=== PATIENT | male | born 1955 | race Hispanic/Latino ===

== ENCOUNTER → 2018-03-12 | Outpatient (RCR) | payer OTHER ==
[~2018-03-12] MED LIST: ALFUZOSIN HCL10 MG PO; ALPRAZOLAM0.25 MG PO; AZATHIOPRINE50 MG PO; CALAN SR240 MG PO; CIPRO500 MG PO; GABAPENTIN300 MG PO; LIPITOR20 MG PO; NEXIUM20 MG; NORCO 10-325 T1 EACH PO; PLAQUENIL200 MG PO; PRAVASTATIN SOD40 MG; PREDNISONE5 MG PO; TAMSULOSIN HCL0.4 MG PO; TRAMADOL-ACETAMI1 EA PO; TYLENOL325 MG PO; [UNRECOGNIZED DRUG - OTHER] PO
== END ==
LOC: PT 02-18 11:04
PROVIDERS: ATTEND Specialist
DX: S46.812D Strain of other muscles, fascia and tendons at shoulder and upper arm level, left arm, subsequent encounter (principal); R29.3 Abnormal posture; M62.81 Muscle weakness (generalized)

== ENCOUNTER 2018-03-17 16:49 | Outpatient (RCR) | payer OTHER | END 2018-04-11 | LOC: PT 16:49 | PROVIDERS: ATTEND Specialist | DX: S46.812D Strain of other muscles, fascia and tendons at shoulder and upper arm level, left arm, subsequent encounter (principal); M62.81 Muscle weakness (generalized); R29.3 Abnormal posture ==

== ENCOUNTER 2020-12-19 13:54 | Emergency (ER) | payer OTHER ==
[~2020-12-19] VITALS: Ht 175.3 cm; Wt 83.9 kg
[2020-12-19] MEDS: CASIRIVIMAB/IMDEVIMAB 10 ML in SODIUM CHLORIDE 0.9% 100 ML IV ONE (14:39)
[2020-12-19 15:52] VITALS: BP 144/76
== END 2020-12-19 16:13 | disposition home or self-care (01) ==
LOC: ER 14:19
DX: U07.1 COVID-19 (principal); R05 Cough; I10 Essential (primary) hypertension; E78.5 Hyperlipidemia, unspecified; F32.9 Major depressive disorder, single episode, unspecified; F41.9 Anxiety disorder, unspecified; I25.10 Atherosclerotic heart disease of native coronary artery without angina pectoris; M32.9 Systemic lupus erythematosus, unspecified; Z79.899 Other long term (current) drug therapy
CPT/HCPCS: 93005; 99283; J7050

== ENCOUNTER 2020-12-21 15:12 | Inpatient (IN) | payer OTHER ==
[~2020-12-21] VITALS: Ht 175.3 cm; Wt 90.7 kg
[2020-12-21] MEDS ORDERED: DEXAMETHASONE SOD PHOS INJ 4 MG/ML VIAL IV ONE (16:00)
[2020-12-21] MEDS ORDERED: KETOROLAC TROMETHAMINE 30 MG/ML VIAL IV STA (16:28)
[2020-12-21] MEDS ORDERED: DEXAMETHASONE SOD PHOS INJ 4 MG/ML VIAL ONE (16:30)
[2020-12-21] MEDS ORDERED: KETOROLAC TROMETHAMINE 30 MG/ML VIAL ONE (16:30)
[2020-12-21] MEDS ORDERED: SODIUM CHLORIDE 0.9% 250ML 250 ML ONE (16:31)
[2020-12-21] MEDS ORDERED: PLAVIX75 MG PO (17:10)
[2020-12-21] MEDS ORDERED: LOSARTAN POTAS100 MG PO (17:10)
[2020-12-21 17:33] LABS: CREATINE KINASE MB 0.4 ng/mL (0-5.0)
[2020-12-21 19:28] VITALS: BP 129/70
[2020-12-21 20:10] VITALS: BP 129/70
[2020-12-21 21:51] VITALS: BP 129/70
[2020-12-22] VITALS (8 sets, daily range): BP systolic 106–141; BP diastolic 64–91
[2020-12-22] MEDS ORDERED: MAGNESIUM HYDROXIDE 30 ML UDC PO PRN (03:00)
[2020-12-22] MEDS ORDERED: ONDANSETRON HCL INJ 2MG/ML 2ML 2 MG/ML VIAL IV PRN (03:00)
[2020-12-22 07:17] LABS: BASOPHILS % 0.3 % (0.0-1.0); HEMATOCRIT 30.9 % (38.2-49.6); HEMOGLOBIN 11.1 g/dL (14.0-18.0); LYMPHOCYTES # (AUTO) 0.3 (1.0-3.2); LYMPHOCYTES % 5.5 % (18.0-39.1); MEAN CORPUSCULAR HEMOGLOBIN 35.2 pg (28-32); MEAN CORPUSCULAR HGB CONC 35.9 g/dL (31-35); MEAN CORPUSCULAR VOLUME 98.1 fL (81-99); MONOCYTES # (AUTO) 0.1 (0.2-0.8); MONOCYTES % 2.2 % (4.4-11.3); NEUTROPHILS # (AUTO) 4.9 (2.1-6.9); NEUTROPHILS % 84.4 % (38.7-80.0); PLATELET COUNT 159 x10e3/uL (140-360); RED BLOOD COUNT 3.15 x10e6/uL (4.3-5.7); RED CELL DISTRIBUTION WIDTH 13.4 % (11.7-14.4)
[2020-12-22 07:26] LABS: ALBUMIN/GLOBULIN RATIO 0.3 (0.8-2.0); ANION GAP 16.5 mmol/L (8-16); CALCIUM 8.7 mg/dL (8.4-10.2); CREATININE, SERUM 0.75 mg/dL (0.72-1.25); POTASSIUM 4.5 mmol/L (3.5-5.1)
[2020-12-22 08:01] LABS: CREATINE KINASE MB 0.8 ng/mL (0-5.0)
[2020-12-22] MEDS: VERAPAMIL HCL 240 MG TABSR PO SCH (08:52)
[2020-12-22] MEDS: DEXAMETHASONE SOD PHOS INJ 4 MG/ML VIAL IV SCH (08:52)
[2020-12-22] MEDS: PANTOPRAZOLE SOD 40 MG TABEC PO SCH ×2 (08:52→16:20)
[2020-12-22] MEDS: GABAPENTIN 300 MG CAP PO SCH ×2 (08:52→16:20)
[2020-12-22] MEDS: LOSARTAN POTASSIUM 100 MG TAB PO SCH (08:52)
[2020-12-22] MEDS: ENOXAPARIN SOD INJ 60 MG/0.6 ML SYR SC SCH ×2 (10:35→21:15)
[2020-12-22] MEDS: FUROSEMIDE 20 MG TAB PO SCH (11:30)
[2020-12-22] MEDS: ALFUZOSIN HCL 10 MG TAB.ER.24H PO SCH (11:30)
[2020-12-22] MEDS ORDERED: SODIUM CHLORIDE 0.9% 250ML 250 ML ONE ×2 (14:37→14:39)
[2020-12-22] MEDS: CEFTRIAXONE 1 GM in SODIUM CHLORIDE 0.9% 50ML 50 ML IV SCH (14:43)
[2020-12-22 15:46] LABS: CREATINE KINASE MB 0.8 ng/mL (0-5.0)
[2020-12-22] MEDS ORDERED: SODIUM CHLORIDE 0.9% 50ML 50 ML ONE (15:52)
[2020-12-22] MEDS ORDERED: ENOXAPARIN SOD INJ 40 MG/0.4 ML SYR SC SCH (17:00)
[2020-12-22] MEDS ORDERED: REMDESIVIR 200MG 200 MG IV ONE (17:00)
[2020-12-22] MEDS: CLOPIDOGREL BISULFATE 75 MG TAB PO SCH (21:00)
[2020-12-22] MEDS: PRAVASTATIN 20 MG TAB PO SCH (21:15)
[2020-12-22] MEDS: TRAMADOL HCL 50 MG TAB PO PRN (21:50)
[2020-12-23] VITALS (7 sets, daily range): BP systolic 100–143; BP diastolic 52–77
[2020-12-23 04:49] LABS: BASOPHILS % 0.2 % (0.0-1.0); HEMATOCRIT 29.2 % (38.2-49.6); HEMOGLOBIN 10.4 g/dL (14.0-18.0); LYMPHOCYTES # (AUTO) 0.4 (1.0-3.2); LYMPHOCYTES % 4.3 % (18.0-39.1); MEAN CORPUSCULAR HEMOGLOBIN 35.1 pg (28-32); MEAN CORPUSCULAR HGB CONC 35.6 g/dL (31-35); MEAN CORPUSCULAR VOLUME 98.6 fL (81-99); MONOCYTES # (AUTO) 0.2 (0.2-0.8); MONOCYTES % 1.6 % (4.4-11.3); NEUTROPHILS # (AUTO) 8.2 (2.1-6.9); NEUTROPHILS % 89.7 % (38.7-80.0); PLATELET COUNT 172 x10e3/uL (140-360); RED BLOOD COUNT 2.96 x10e6/uL (4.3-5.7); RED CELL DISTRIBUTION WIDTH 13.3 % (11.7-14.4)
[2020-12-23 05:12] LABS: ALBUMIN 1.8 g/dL (3.5-5.0); ALBUMIN/GLOBULIN RATIO 0.3 (0.8-2.0); ANION GAP 16.6 mmol/L (8-16); CALCIUM 8.5 mg/dL (8.4-10.2); CREATININE, SERUM 0.8 mg/dL (0.72-1.25); POTASSIUM 4.6 mmol/L (3.5-5.1)
[2020-12-23] MEDS: DEXAMETHASONE SOD PHOS INJ 4 MG/ML VIAL IV SCH (09:12)
[2020-12-23] MEDS: GABAPENTIN 300 MG CAP PO SCH ×2 (09:13→17:04)
[2020-12-23] MEDS: FUROSEMIDE 20 MG TAB PO SCH (09:13)
[2020-12-23] MEDS: ALFUZOSIN HCL 10 MG TAB.ER.24H PO SCH (09:13)
[2020-12-23] MEDS: PANTOPRAZOLE SOD 40 MG TABEC PO SCH ×2 (09:13→17:04)
[2020-12-23] MEDS: ENOXAPARIN SOD INJ 60 MG/0.6 ML SYR SC SCH ×2 (09:13→21:05)
[2020-12-23] MEDS: VERAPAMIL HCL 240 MG TABSR PO SCH (09:13)
[2020-12-23] MEDS: LOSARTAN POTASSIUM 100 MG TAB PO SCH (09:13)
[2020-12-23] MEDS ORDERED: FUROSEMIDE INJ 10 MG/ML 4 ML VIAL IV ONE (10:45)
[2020-12-23] MEDS: CEFTRIAXONE 1 GM in SODIUM CHLORIDE 0.9% 50ML 50 ML IV SCH (14:20)
[2020-12-23] MEDS: REMDESIVIR 100MG 100 MG IV SCH (17:04)
[2020-12-23] MEDS: PRAVASTATIN 20 MG TAB PO SCH (21:05)
[2020-12-23] MEDS: CLOPIDOGREL BISULFATE 75 MG TAB PO SCH (21:05)
[2020-12-24] VITALS (8 sets, daily range): BP systolic 108–128; BP diastolic 59–79
[2020-12-24] MEDS: TRAMADOL HCL 50 MG TAB PO PRN (00:20)
[2020-12-24 06:43] LABS: ALBUMIN/GLOBULIN RATIO 0.3 (0.8-2.0); ANION GAP 18.2 mmol/L (8-16); CALCIUM 8.6 mg/dL (8.4-10.2); CREATININE, SERUM 0.88 mg/dL (0.72-1.25); POTASSIUM 5.2 mmol/L (3.5-5.1)
[2020-12-24] MEDS: DEXAMETHASONE SOD PHOS INJ 4 MG/ML VIAL IV SCH (09:06)
[2020-12-24] MEDS: VERAPAMIL HCL 240 MG TABSR PO SCH (09:07)
[2020-12-24] MEDS: ALFUZOSIN HCL 10 MG TAB.ER.24H PO SCH (09:07)
[2020-12-24] MEDS: FUROSEMIDE 20 MG TAB PO SCH (09:08)
[2020-12-24] MEDS: ENOXAPARIN SOD INJ 60 MG/0.6 ML SYR SC SCH ×2 (09:08→20:46)
[2020-12-24] MEDS: PANTOPRAZOLE SOD 40 MG TABEC PO SCH ×2 (09:08→17:13)
[2020-12-24] MEDS: GABAPENTIN 300 MG CAP PO SCH ×2 (09:08→17:13)
[2020-12-24] MEDS: LOSARTAN POTASSIUM 100 MG TAB PO SCH (09:08)
[2020-12-24] MEDS ORDERED: SODIUM CHLORIDE 0.9% 1000ML 1,000 ML IV ONE (11:00)
[2020-12-24] MEDS ORDERED: SODIUM CHLORIDE 0.9% 1000ML 1,000 ML ONE (14:35)
[2020-12-24] MEDS: CEFTRIAXONE 1 GM in SODIUM CHLORIDE 0.9% 50ML 50 ML IV SCH (15:02)
[2020-12-24] MEDS: REMDESIVIR 100MG 100 MG IV SCH (17:13)
[2020-12-24] MEDS: PRAVASTATIN 20 MG TAB PO SCH (20:46)
[2020-12-24] MEDS: CLOPIDOGREL BISULFATE 75 MG TAB PO SCH (20:46)
[2020-12-25] VITALS (8 sets, daily range): BP systolic 113–130; BP diastolic 65–82
[2020-12-25] MEDS: TRAMADOL HCL 50 MG TAB PO PRN (00:40)
[2020-12-25 05:53] LABS: BASOPHILS % 0.1 % (0.0-1.0); HEMATOCRIT 31.6 % (38.2-49.6); HEMOGLOBIN 10.9 g/dL (14.0-18.0); LYMPHOCYTES # (AUTO) 0.3 (1.0-3.2); LYMPHOCYTES % 3.9 % (18.0-39.1); MEAN CORPUSCULAR HEMOGLOBIN 34.5 pg (28-32); MEAN CORPUSCULAR HGB CONC 34.5 g/dL (31-35); MONOCYTES # (AUTO) 0.1 (0.2-0.8); MONOCYTES % 1.5 % (4.4-11.3); NEUTROPHILS # (AUTO) 7.5 (2.1-6.9); NEUTROPHILS % 92.3 % (38.7-80.0); PLATELET COUNT 232 x10e3/uL (140-360); RED BLOOD COUNT 3.16 x10e6/uL (4.3-5.7); RED CELL DISTRIBUTION WIDTH 13.3 % (11.7-14.4)
[2020-12-25 06:31] LABS: ALBUMIN 2.2 g/dL (3.5-5.0); ALBUMIN/GLOBULIN RATIO 0.3 (0.8-2.0); ANION GAP 16.3 mmol/L (8-16); CALCIUM 8.9 mg/dL (8.4-10.2); CREATININE, SERUM 0.76 mg/dL (0.72-1.25); POTASSIUM 5.3 mmol/L (3.5-5.1)
[2020-12-25] MEDS ORDERED: SOD POLYSTYRENE SULFONATE SUSP 15 GM/60 ML BTL PO ONE (08:45)
[2020-12-25] MEDS: DEXAMETHASONE SOD PHOS INJ 4 MG/ML VIAL IV SCH (09:16)
[2020-12-25] MEDS: PANTOPRAZOLE SOD 40 MG TABEC PO SCH ×2 (09:18→16:08)
[2020-12-25] MEDS: LOSARTAN POTASSIUM 100 MG TAB PO SCH (09:18)
[2020-12-25] MEDS: ALFUZOSIN HCL 10 MG TAB.ER.24H PO SCH (09:18)
[2020-12-25] MEDS: VERAPAMIL HCL 240 MG TABSR PO SCH (09:18)
[2020-12-25] MEDS: GABAPENTIN 300 MG CAP PO SCH ×2 (09:18→16:08)
[2020-12-25] MEDS: ENOXAPARIN SOD INJ 60 MG/0.6 ML SYR SC SCH ×2 (09:18→21:30)
[2020-12-25] MEDS: CEFTRIAXONE 1 GM in SODIUM CHLORIDE 0.9% 50ML 50 ML IV SCH (15:00)
[2020-12-25] MEDS: REMDESIVIR 100MG 100 MG IV SCH (16:08)
[2020-12-25] MEDS: CLOPIDOGREL BISULFATE 75 MG TAB PO SCH (21:30)
[2020-12-25] MEDS: PRAVASTATIN 20 MG TAB PO SCH (21:30)
[2020-12-26] VITALS (7 sets, daily range): BP systolic 95–152; BP diastolic 61–78
[2020-12-26 04:49] LABS: BASOPHILS % 0.3 % (0.0-1.0); HEMATOCRIT 29.5 % (38.2-49.6); HEMOGLOBIN 10.3 g/dL (14.0-18.0); LYMPHOCYTES # (AUTO) 0.3 (1.0-3.2); LYMPHOCYTES % 3.6 % (18.0-39.1); MEAN CORPUSCULAR HEMOGLOBIN 34.8 pg (28-32); MEAN CORPUSCULAR HGB CONC 34.9 g/dL (31-35); MEAN CORPUSCULAR VOLUME 99.7 fL (81-99); MONOCYTES # (AUTO) 0.1 (0.2-0.8); MONOCYTES % 1.2 % (4.4-11.3); NEUTROPHILS # (AUTO) 6.6 (2.1-6.9); PLATELET COUNT 227 x10e3/uL (140-360); RED BLOOD COUNT 2.96 x10e6/uL (4.3-5.7); RED CELL DISTRIBUTION WIDTH 13.4 % (11.7-14.4)
[2020-12-26 05:09] LABS: ALBUMIN 1.8 g/dL (3.5-5.0); ALBUMIN/GLOBULIN RATIO 0.3 (0.8-2.0); CALCIUM 8.4 mg/dL (8.4-10.2); CREATININE, SERUM 0.74 mg/dL (0.72-1.25)
[2020-12-26] MEDS: ENOXAPARIN SOD INJ 60 MG/0.6 ML SYR SC SCH ×2 (09:05→21:30)
[2020-12-26] MEDS: GABAPENTIN 300 MG CAP PO SCH ×2 (09:05→17:15)
[2020-12-26] MEDS: LOSARTAN POTASSIUM 100 MG TAB PO SCH (09:05)
[2020-12-26] MEDS: PANTOPRAZOLE SOD 40 MG TABEC PO SCH ×2 (09:05→17:15)
[2020-12-26] MEDS: DEXAMETHASONE SOD PHOS INJ 4 MG/ML VIAL IV SCH (09:05)
[2020-12-26] MEDS: VERAPAMIL HCL 240 MG TABSR PO SCH (09:05)
[2020-12-26] MEDS: ALFUZOSIN HCL 10 MG TAB.ER.24H PO SCH (09:05)
[2020-12-26] MEDS ORDERED: FUROSEMIDE INJ 10 MG/ML 4 ML VIAL IV ONE (10:15)
[2020-12-26] MEDS: CEFTRIAXONE 1 GM in SODIUM CHLORIDE 0.9% 50ML 50 ML IV SCH (14:41)
[2020-12-26] MEDS: REMDESIVIR 100MG 100 MG IV SCH (17:15)
[2020-12-26] MEDS: PRAVASTATIN 20 MG TAB PO SCH (21:30)
[2020-12-26] MEDS: CLOPIDOGREL BISULFATE 75 MG TAB PO SCH (21:30)
[2020-12-27] VITALS (7 sets, daily range): BP systolic 96–135; BP diastolic 53–79
[2020-12-27] MEDS ORDERED: PREDNISONE 20 MG TAB PO ONE (01:45)
[2020-12-27] MEDS: ALFUZOSIN HCL 10 MG TAB.ER.24H PO SCH (09:27)
[2020-12-27] MEDS: DEXAMETHASONE SOD PHOS INJ 4 MG/ML VIAL IV SCH (09:27)
[2020-12-27] MEDS: LOSARTAN POTASSIUM 100 MG TAB PO SCH (09:28)
[2020-12-27] MEDS: VERAPAMIL HCL 240 MG TABSR PO SCH (09:28)
[2020-12-27] MEDS: GABAPENTIN 300 MG CAP PO SCH ×2 (09:29→17:07)
[2020-12-27] MEDS: ENOXAPARIN SOD INJ 60 MG/0.6 ML SYR SC SCH ×2 (09:29→20:25)
[2020-12-27] MEDS: PANTOPRAZOLE SOD 40 MG TABEC PO SCH ×2 (09:29→17:07)
[2020-12-27] MEDS ORDERED: FUROSEMIDE INJ 10 MG/ML 4 ML VIAL IV ONE (10:55)
[2020-12-27] MEDS: CEFTRIAXONE 1 GM in SODIUM CHLORIDE 0.9% 50ML 50 ML IV SCH (17:07)
[2020-12-27] MEDS: PRAVASTATIN 20 MG TAB PO SCH (20:25)
[2020-12-27] MEDS: CLOPIDOGREL BISULFATE 75 MG TAB PO SCH (20:25)
[2020-12-28] VITALS (7 sets, daily range): BP systolic 110–131; BP diastolic 60–85
[2020-12-28 06:28] LABS: ALBUMIN 1.9 g/dL (3.5-5.0); ALBUMIN/GLOBULIN RATIO 0.3 (0.8-2.0); ANION GAP 16.1 mmol/L (8-16); CALCIUM 8.4 mg/dL (8.4-10.2); CREATININE, SERUM 0.8 mg/dL (0.72-1.25); POTASSIUM 4.1 mmol/L (3.5-5.1)
[2020-12-28] MEDS: PANTOPRAZOLE SOD 40 MG TABEC PO SCH ×2 (09:00→17:00)
[2020-12-28] MEDS: ALFUZOSIN HCL 10 MG TAB.ER.24H PO SCH (09:00)
[2020-12-28] MEDS: ENOXAPARIN SOD INJ 60 MG/0.6 ML SYR SC SCH ×2 (09:00→21:52)
[2020-12-28] MEDS: GABAPENTIN 300 MG CAP PO SCH ×2 (09:00→17:00)
[2020-12-28] MEDS: DEXAMETHASONE SOD PHOS INJ 4 MG/ML VIAL IV SCH (09:00)
[2020-12-28] MEDS: LOSARTAN POTASSIUM 100 MG TAB PO SCH (09:00)
[2020-12-28] MEDS: VERAPAMIL HCL 240 MG TABSR PO SCH (09:00)
[2020-12-28] MEDS: CEFTRIAXONE 1 GM in SODIUM CHLORIDE 0.9% 50ML 50 ML IV SCH (15:08)
[2020-12-28] MEDS: CLOPIDOGREL BISULFATE 75 MG TAB PO SCH (21:52)
[2020-12-28] MEDS: PRAVASTATIN 20 MG TAB PO SCH (21:52)
[2020-12-29] VITALS (7 sets, daily range): BP systolic 97–136; BP diastolic 60–87
[2020-12-29 04:47] LABS: BASOPHILS % 0.2 % (0.0-1.0); HEMATOCRIT 29.7 % (38.2-49.6); HEMOGLOBIN 10.2 g/dL (14.0-18.0); LYMPHOCYTES # (AUTO) 0.3 (1.0-3.2); MEAN CORPUSCULAR HEMOGLOBIN 34.2 pg (28-32); MEAN CORPUSCULAR HGB CONC 34.3 g/dL (31-35); MEAN CORPUSCULAR VOLUME 99.7 fL (81-99); MONOCYTES # (AUTO) 0.1 (0.2-0.8); MONOCYTES % 1.9 % (4.4-11.3); NEUTROPHILS # (AUTO) 4.5 (2.1-6.9); NEUTROPHILS % 87.4 % (38.7-80.0); PLATELET COUNT 222 x10e3/uL (140-360); RED BLOOD COUNT 2.98 x10e6/uL (4.3-5.7); RED CELL DISTRIBUTION WIDTH 13.2 % (11.7-14.4)
[2020-12-29 05:30] LABS: ALBUMIN 1.8 g/dL (3.5-5.0); ALBUMIN/GLOBULIN RATIO 0.3 (0.8-2.0); ANION GAP 14.3 mmol/L (8-16); CALCIUM 8.4 mg/dL (8.4-10.2); CREATININE, SERUM 0.68 mg/dL (0.72-1.25); POTASSIUM 4.3 mmol/L (3.5-5.1)
[2020-12-29] MEDS: ALFUZOSIN HCL 10 MG TAB.ER.24H PO SCH (09:38)
[2020-12-29] MEDS: DEXAMETHASONE SOD PHOS INJ 4 MG/ML VIAL IV SCH (09:38)
[2020-12-29] MEDS: LOSARTAN POTASSIUM 100 MG TAB PO SCH (09:39)
[2020-12-29] MEDS: GABAPENTIN 300 MG CAP PO SCH ×2 (09:39→17:40)
[2020-12-29] MEDS: ENOXAPARIN SOD INJ 60 MG/0.6 ML SYR SC SCH ×2 (09:39→21:07)
[2020-12-29] MEDS: VERAPAMIL HCL 240 MG TABSR PO SCH (09:39)
[2020-12-29] MEDS: PANTOPRAZOLE SOD 40 MG TABEC PO SCH ×2 (09:39→17:40)
[2020-12-29] MEDS ORDERED: FUROSEMIDE INJ 10 MG/ML 4 ML VIAL IV ONE (10:45)
[2020-12-29] MEDS: FAMOTIDINE 20 MG TAB PO SCH ×2 (11:36→21:06)
[2020-12-29] MEDS: CLOPIDOGREL BISULFATE 75 MG TAB PO SCH (21:06)
[2020-12-29] MEDS: PRAVASTATIN 20 MG TAB PO SCH (21:07)
[2020-12-30] VITALS (9 sets, daily range): BP systolic 109–123; BP diastolic 60–91
[2020-12-30] MEDS: ALFUZOSIN HCL 10 MG TAB.ER.24H PO SCH (09:59)
[2020-12-30] MEDS: FAMOTIDINE 20 MG TAB PO SCH ×2 (09:59→21:32)
[2020-12-30] MEDS: ENOXAPARIN SOD INJ 60 MG/0.6 ML SYR SC SCH ×2 (09:59→21:32)
[2020-12-30] MEDS: PANTOPRAZOLE SOD 40 MG TABEC PO SCH ×2 (09:59→17:15)
[2020-12-30] MEDS: DEXAMETHASONE SOD PHOS INJ 4 MG/ML VIAL IV SCH (09:59)
[2020-12-30] MEDS: GABAPENTIN 300 MG CAP PO SCH ×2 (09:59→17:15)
[2020-12-30] MEDS: LOSARTAN POTASSIUM 100 MG TAB PO SCH (11:00)
[2020-12-30] MEDS: VERAPAMIL HCL 240 MG TABSR PO SCH (11:00)
[2020-12-30] MEDS: CLOPIDOGREL BISULFATE 75 MG TAB PO SCH (21:32)
[2020-12-30] MEDS: PRAVASTATIN 20 MG TAB PO SCH (21:32)
[2020-12-31] VITALS (8 sets, daily range): BP systolic 106–117; BP diastolic 67–85
[2020-12-31] MEDS: ALFUZOSIN HCL 10 MG TAB.ER.24H PO SCH (11:11)
[2020-12-31] MEDS: DEXAMETHASONE SOD PHOS INJ 4 MG/ML VIAL IV SCH (11:11)
[2020-12-31] MEDS: GABAPENTIN 300 MG CAP PO SCH ×2 (11:12→16:59)
[2020-12-31] MEDS: VERAPAMIL HCL 240 MG TABSR PO SCH (11:12)
[2020-12-31] MEDS: FAMOTIDINE 20 MG TAB PO SCH ×2 (11:12→20:30)
[2020-12-31] MEDS: PANTOPRAZOLE SOD 40 MG TABEC PO SCH ×2 (11:12→16:59)
[2020-12-31] MEDS: LOSARTAN POTASSIUM 100 MG TAB PO SCH (11:12)
[2020-12-31] MEDS: ENOXAPARIN SOD INJ 60 MG/0.6 ML SYR SC SCH ×2 (11:13→20:30)
[2020-12-31] MEDS: PRAVASTATIN 20 MG TAB PO SCH (20:30)
[2020-12-31] MEDS: CLOPIDOGREL BISULFATE 75 MG TAB PO SCH (20:30)
[2021-01-01] VITALS (8 sets, daily range): BP systolic 91–128; BP diastolic 53–77
[2021-01-01 05:29] LABS: BASOPHILS % 0.2 % (0.0-1.0); HEMOGLOBIN 11.6 g/dL (14.0-18.0); LYMPHOCYTES # (AUTO) 0.6 (1.0-3.2); LYMPHOCYTES % 9.4 % (18.0-39.1); MEAN CORPUSCULAR HEMOGLOBIN 34.3 pg (28-32); MEAN CORPUSCULAR HGB CONC 35.2 g/dL (31-35); MEAN CORPUSCULAR VOLUME 97.6 fL (81-99); MONOCYTES # (AUTO) 0.2 (0.2-0.8); MONOCYTES % 2.3 % (4.4-11.3); NEUTROPHILS # (AUTO) 5.4 (2.1-6.9); NEUTROPHILS % 82.7 % (38.7-80.0); PLATELET COUNT 274 x10e3/uL (140-360); RED BLOOD COUNT 3.38 x10e6/uL (4.3-5.7)
[2021-01-01 06:06] LABS: ALBUMIN/GLOBULIN RATIO 0.3 (0.8-2.0); ANION GAP 18.3 mmol/L (8-16); CALCIUM 8.8 mg/dL (8.4-10.2); CREATININE, SERUM 0.75 mg/dL (0.72-1.25); POTASSIUM 4.3 mmol/L (3.5-5.1)
[2021-01-01] MEDS: ENOXAPARIN SOD INJ 60 MG/0.6 ML SYR SC SCH ×2 (11:51→21:10)
[2021-01-01] MEDS: DEXAMETHASONE SOD PHOS INJ 4 MG/ML VIAL IV SCH (11:51)
[2021-01-01] MEDS: VERAPAMIL HCL 240 MG TABSR PO SCH (11:52)
[2021-01-01] MEDS: ALFUZOSIN HCL 10 MG TAB.ER.24H PO SCH (11:52)
[2021-01-01] MEDS: FAMOTIDINE 20 MG TAB PO SCH ×2 (11:52→21:10)
[2021-01-01] MEDS: PANTOPRAZOLE SOD 40 MG TABEC PO SCH ×2 (11:52→17:22)
[2021-01-01] MEDS: LOSARTAN POTASSIUM 100 MG TAB PO SCH (11:52)
[2021-01-01] MEDS: PRAVASTATIN 20 MG TAB PO SCH (21:10)
[2021-01-01] MEDS: CLOPIDOGREL BISULFATE 75 MG TAB PO SCH (21:10)
[2021-01-02] VITALS (9 sets, daily range): BP systolic 109–127; BP diastolic 60–74
[2021-01-02] MEDS: DEXAMETHASONE SOD PHOS INJ 4 MG/ML VIAL IV SCH (10:01)
[2021-01-02] MEDS: ALFUZOSIN HCL 10 MG TAB.ER.24H PO SCH (10:01)
[2021-01-02] MEDS: LOSARTAN POTASSIUM 100 MG TAB PO SCH (10:02)
[2021-01-02] MEDS: VERAPAMIL HCL 240 MG TABSR PO SCH (10:02)
[2021-01-02] MEDS: PANTOPRAZOLE SOD 40 MG TABEC PO SCH ×2 (10:03→17:47)
[2021-01-02] MEDS: ENOXAPARIN SOD INJ 60 MG/0.6 ML SYR SC SCH ×2 (10:03→21:38)
[2021-01-02] MEDS: FAMOTIDINE 20 MG TAB PO SCH ×2 (10:03→21:38)
[2021-01-02] MEDS: ACETAMINOPHEN 325 MG TAB PO PRN (18:30)
[2021-01-02] MEDS: CLOPIDOGREL BISULFATE 75 MG TAB PO SCH (21:38)
[2021-01-02] MEDS: PRAVASTATIN 20 MG TAB PO SCH (21:38)
[2021-01-03] VITALS (9 sets, daily range): BP systolic 94–130; BP diastolic 52–78
[2021-01-03] MEDS: DEXAMETHASONE SOD PHOS INJ 4 MG/ML VIAL IV SCH (09:36)
[2021-01-03] MEDS: ALFUZOSIN HCL 10 MG TAB.ER.24H PO SCH (09:37)
[2021-01-03] MEDS: VERAPAMIL HCL 240 MG TABSR PO SCH (09:38)
[2021-01-03] MEDS: LOSARTAN POTASSIUM 100 MG TAB PO SCH (09:38)
[2021-01-03] MEDS: ENOXAPARIN SOD INJ 60 MG/0.6 ML SYR SC SCH (09:41)
[2021-01-03] MEDS: FAMOTIDINE 20 MG TAB PO SCH ×2 (09:41→21:04)
[2021-01-03] MEDS: PANTOPRAZOLE SOD 40 MG TABEC PO SCH ×2 (09:41→16:07)
[2021-01-03] MEDS: CLOPIDOGREL BISULFATE 75 MG TAB PO SCH (21:04)
[2021-01-03] MEDS: PRAVASTATIN 20 MG TAB PO SCH (21:04)
[2021-01-04 04:19] VITALS: BP 117/71
[2021-01-04 08:17] VITALS: BP 113/67
[2021-01-04 08:27] VITALS: BP 113/67
[2021-01-04] MEDS: ALFUZOSIN HCL 10 MG TAB.ER.24H PO SCH (09:25)
[2021-01-04] MEDS: LOSARTAN POTASSIUM 100 MG TAB PO SCH (09:26)
[2021-01-04] MEDS: VERAPAMIL HCL 120 MG TABSR PO SCH (09:26)
[2021-01-04] MEDS: PANTOPRAZOLE SOD 40 MG TABEC PO SCH ×2 (09:27→17:23)
[2021-01-04] MEDS: HYDROXYCHLOROQUINE SULFATE 200 MG TAB PO SCH (09:27)
[2021-01-04] MEDS: FAMOTIDINE 20 MG TAB PO SCH ×2 (09:27→20:00)
[2021-01-04] MEDS: DEXAMETHASONE SOD PHOS INJ 4 MG/ML VIAL IV SCH (09:27)
[2021-01-04 11:37] VITALS: BP 98/62
[2021-01-04] MEDS: ENOXAPARIN SOD INJ 40 MG/0.4 ML SYR SC SCH (14:13)
[2021-01-04] MEDS: ACETAMINOPHEN 325 MG TAB PO PRN (17:33)
[2021-01-04 20:00] VITALS: BP 106/62
[2021-01-04] MEDS: CLOPIDOGREL BISULFATE 75 MG TAB PO SCH (20:00)
[2021-01-04] MEDS: PRAVASTATIN 20 MG TAB PO SCH (20:00)
[2021-01-04 21:36] VITALS: BP 106/62
[2021-01-05] VITALS (7 sets, daily range): BP systolic 91–104; BP diastolic 54–65
[2021-01-05 05:46] LABS: BASOPHILS % 0.2 % (0.0-1.0); EOSINOPHILS % 0.8 % (0.0-6.0); HEMATOCRIT 31.1 % (38.2-49.6); HEMOGLOBIN 10.9 g/dL (14.0-18.0); LYMPHOCYTES # (AUTO) 0.7 (1.0-3.2); LYMPHOCYTES % 14.9 % (18.0-39.1); MEAN CORPUSCULAR HEMOGLOBIN 34.2 pg (28-32); MEAN CORPUSCULAR VOLUME 97.5 fL (81-99); MONOCYTES # (AUTO) 0.2 (0.2-0.8); MONOCYTES % 4.6 % (4.4-11.3); NEUTROPHILS # (AUTO) 3.5 (2.1-6.9); NEUTROPHILS % 72.9 % (38.7-80.0); PLATELET COUNT 147 x10e3/uL (140-360); RED BLOOD COUNT 3.19 x10e6/uL (4.3-5.7); RED CELL DISTRIBUTION WIDTH 13.2 % (11.7-14.4)
[2021-01-05 06:30] LABS: ALBUMIN 2.5 g/dL (3.5-5.0); ALBUMIN/GLOBULIN RATIO 0.5 (0.8-2.0); ANION GAP 13.2 mmol/L (8-16); CALCIUM 8.4 mg/dL (8.4-10.2); CREATININE, SERUM 0.82 mg/dL (0.72-1.25); POTASSIUM 4.2 mmol/L (3.5-5.1)
[2021-01-05] MEDS: ALFUZOSIN HCL 10 MG TAB.ER.24H PO SCH (09:40)
[2021-01-05] MEDS: DEXAMETHASONE SOD PHOS INJ 4 MG/ML VIAL IV SCH (09:40)
[2021-01-05] MEDS: ENOXAPARIN SOD INJ 40 MG/0.4 ML SYR SC SCH (09:41)
[2021-01-05] MEDS: HYDROXYCHLOROQUINE SULFATE 200 MG TAB PO SCH (09:41)
[2021-01-05] MEDS: PANTOPRAZOLE SOD 40 MG TABEC PO SCH ×2 (09:41→18:04)
[2021-01-05] MEDS: VERAPAMIL HCL 120 MG TABSR PO SCH (09:41)
[2021-01-05] MEDS: LOSARTAN POTASSIUM 100 MG TAB PO SCH (09:41)
[2021-01-05] MEDS: FAMOTIDINE 20 MG TAB PO SCH ×2 (09:41→20:25)
[2021-01-05] MEDS ORDERED: FUROSEMIDE INJ 10 MG/ML 4 ML VIAL IV ONE (11:30)
[2021-01-05] MEDS: ACETAMINOPHEN 325 MG TAB PO PRN (15:16)
[2021-01-05] MEDS: CLOPIDOGREL BISULFATE 75 MG TAB PO SCH (20:25)
[2021-01-05] MEDS: PRAVASTATIN 20 MG TAB PO SCH (20:25)
[2021-01-06] VITALS (8 sets, daily range): BP systolic 91–113; BP diastolic 59–71
[2021-01-06] MEDS: ALFUZOSIN HCL 10 MG TAB.ER.24H PO SCH (09:31)
[2021-01-06] MEDS: HYDROXYCHLOROQUINE SULFATE 200 MG TAB PO SCH (09:32)
[2021-01-06] MEDS: LOSARTAN POTASSIUM 100 MG TAB PO SCH (09:32)
[2021-01-06] MEDS: PANTOPRAZOLE SOD 40 MG TABEC PO SCH ×2 (09:32→16:22)
[2021-01-06] MEDS: FAMOTIDINE 20 MG TAB PO SCH ×2 (09:32→21:24)
[2021-01-06] MEDS: ENOXAPARIN SOD INJ 40 MG/0.4 ML SYR SC SCH (09:32)
[2021-01-06] MEDS: VERAPAMIL HCL 120 MG TABSR PO SCH (09:32)
[2021-01-06] MEDS: CLOPIDOGREL BISULFATE 75 MG TAB PO SCH (21:24)
[2021-01-06] MEDS: PRAVASTATIN 20 MG TAB PO SCH (21:24)
[2021-01-06] MEDS: ACETAMINOPHEN 325 MG TAB PO PRN (21:25)
[2021-01-06] MEDS ORDERED: BENZONATATE 100 MG CAP PO PRN (21:45)
[2021-01-07] VITALS (8 sets, daily range): BP systolic 90–132; BP diastolic 62–71
[2021-01-07] MEDS: ALFUZOSIN HCL 10 MG TAB.ER.24H PO SCH (09:46)
[2021-01-07] MEDS: VERAPAMIL HCL 120 MG TABSR PO SCH (09:46)
[2021-01-07] MEDS: PANTOPRAZOLE SOD 40 MG TABEC PO SCH ×2 (09:47→16:37)
[2021-01-07] MEDS: LOSARTAN POTASSIUM 100 MG TAB PO SCH (09:47)
[2021-01-07] MEDS: FAMOTIDINE 20 MG TAB PO SCH ×2 (09:47→21:55)
[2021-01-07] MEDS: HYDROXYCHLOROQUINE SULFATE 200 MG TAB PO SCH (09:47)
[2021-01-07] MEDS: ENOXAPARIN SOD INJ 40 MG/0.4 ML SYR SC SCH (09:47)
[2021-01-07] MEDS: PRAVASTATIN 20 MG TAB PO SCH (21:55)
[2021-01-07] MEDS: CLOPIDOGREL BISULFATE 75 MG TAB PO SCH (21:55)
[2021-01-08] VITALS (7 sets, daily range): BP systolic 99–116; BP diastolic 68–79
[2021-01-08] MEDS: FAMOTIDINE 20 MG TAB PO SCH ×2 (10:20→21:58)
[2021-01-08] MEDS: LOSARTAN POTASSIUM 100 MG TAB PO SCH (10:20)
[2021-01-08] MEDS: ENOXAPARIN SOD INJ 40 MG/0.4 ML SYR SC SCH (10:20)
[2021-01-08] MEDS: ALFUZOSIN HCL 10 MG TAB.ER.24H PO SCH (10:20)
[2021-01-08] MEDS: PANTOPRAZOLE SOD 40 MG TABEC PO SCH ×2 (10:20→16:27)
[2021-01-08] MEDS: VERAPAMIL HCL 120 MG TABSR PO SCH (10:20)
[2021-01-08] MEDS: HYDROXYCHLOROQUINE SULFATE 200 MG TAB PO SCH (10:20)
[2021-01-08] MEDS: PRAVASTATIN 20 MG TAB PO SCH (21:58)
[2021-01-08] MEDS: CLOPIDOGREL BISULFATE 75 MG TAB PO SCH (21:58)
[2021-01-09] VITALS (9 sets, daily range): BP systolic 103–179; BP diastolic 67–80
[2021-01-09 09:20] LABS: BASOPHILS % 0.2 % (0.0-1.0); EOSINOPHILS % 0.5 % (0.0-6.0); HEMOGLOBIN 10.2 g/dL (14.0-18.0); LYMPHOCYTES # (AUTO) 0.6 (1.0-3.2); LYMPHOCYTES % 13.1 % (18.0-39.1); MEAN CORPUSCULAR HEMOGLOBIN 34.1 pg (28-32); MEAN CORPUSCULAR HGB CONC 35.2 g/dL (31-35); MONOCYTES # (AUTO) 0.2 (0.2-0.8); MONOCYTES % 4.1 % (4.4-11.3); NEUTROPHILS # (AUTO) 3.2 (2.1-6.9); NEUTROPHILS % 76.1 % (38.7-80.0); PLATELET COUNT 117 x10e3/uL (140-360); RED BLOOD COUNT 2.99 x10e6/uL (4.3-5.7); RED CELL DISTRIBUTION WIDTH 13.2 % (11.7-14.4)
[2021-01-09] MEDS: HYDROXYCHLOROQUINE SULFATE 200 MG TAB PO SCH (09:32)
[2021-01-09] MEDS: VERAPAMIL HCL 120 MG TABSR PO SCH (09:32)
[2021-01-09] MEDS: PANTOPRAZOLE SOD 40 MG TABEC PO SCH ×2 (09:32→18:09)
[2021-01-09] MEDS: ALFUZOSIN HCL 10 MG TAB.ER.24H PO SCH (09:32)
[2021-01-09] MEDS: ENOXAPARIN SOD INJ 40 MG/0.4 ML SYR SC SCH (09:32)
[2021-01-09] MEDS: LOSARTAN POTASSIUM 100 MG TAB PO SCH (09:32)
[2021-01-09] MEDS: FAMOTIDINE 20 MG TAB PO SCH ×2 (09:32→20:35)
[2021-01-09 09:51] LABS: ALBUMIN 2.6 g/dL (3.5-5.0); ALBUMIN/GLOBULIN RATIO 0.5 (0.8-2.0); ANION GAP 12.4 mmol/L (8-16); CALCIUM 8.4 mg/dL (8.4-10.2); CREATININE, SERUM 0.72 mg/dL (0.72-1.25); POTASSIUM 4.4 mmol/L (3.5-5.1)
[2021-01-09] MEDS: CLOPIDOGREL BISULFATE 75 MG TAB PO SCH (20:35)
[2021-01-09] MEDS: PRAVASTATIN 20 MG TAB PO SCH (20:35)
[2021-01-10] VITALS (8 sets, daily range): BP systolic 102–157; BP diastolic 72–95
[2021-01-10] MEDS: ENOXAPARIN SOD INJ 40 MG/0.4 ML SYR SC SCH (11:28)
[2021-01-10] MEDS: HYDROXYCHLOROQUINE SULFATE 200 MG TAB PO SCH (11:28)
[2021-01-10] MEDS: PANTOPRAZOLE SOD 40 MG TABEC PO SCH (11:28)
[2021-01-10] MEDS: ALFUZOSIN HCL 10 MG TAB.ER.24H PO SCH (11:28)
[2021-01-10] MEDS: FAMOTIDINE 20 MG TAB PO SCH (11:28)
[2021-01-10] MEDS: VERAPAMIL HCL 120 MG TABSR PO SCH (11:29)
[2021-01-10] MEDS: LOSARTAN POTASSIUM 100 MG TAB PO SCH (11:29)
[2021-01-10] MEDS ORDERED: ONDANSETRON HCL 4 MG ORAL DISINTEGRATING TAB PO PRN (14:00)
== END 2021-01-10 17:12 | DRG 177 ==
LOC: FSED 15:31 → ERHOLD 16:04 → IMCU 19:30
PROVIDERS: ADMIT Internal Medicine; ATTEND Internal Medicine
PROC: 8E0ZXY6 Isolation (ICD-10-PCS; principal; 2020-12-21)
PROC: XW043E5 Introduction of Remdesivir Anti-infective into Central Vein, Percutaneous Approach, New Technology Group 5 (ICD-10-PCS; 2020-12-22)
DX: U07.1 COVID-19 (principal); J12.82 Pneumonia due to coronavirus disease 2019; J96.21 Acute and chronic respiratory failure with hypoxia; E87.1 Hypo-osmolality and hyponatremia; I25.10 Atherosclerotic heart disease of native coronary artery without angina pectoris; Z95.5 Presence of coronary angioplasty implant and graft; E78.00 Pure hypercholesterolemia, unspecified; D63.8 Anemia in other chronic diseases classified elsewhere; K21.9 Gastro-esophageal reflux disease without esophagitis; M32.9 Systemic lupus erythematosus, unspecified; E66.9 Obesity, unspecified; Z68.31 Body mass index [BMI] 31.0-31.9, adult; D64.9 Anemia, unspecified
CPT/HCPCS: 36415; 71045; 80053; 82550; 82553; 82948; 83880; 84484; 85025; 86140; 96372; 96374; 96375; 97139; 99251; 99284; J0456; J0696; J1100; J1650; J1885; J1940; J7030; J7050; J7512; U0002

== ENCOUNTER 2021-07-29 10:43 | Emergency (ER) | payer OTHER ==
[~2021-07-29] VITALS: Ht 175.3 cm; Wt 90.7 kg
[~2021-07-29 10:43] MED LIST changes: +LOSARTAN POTAS100 MG PO; +PLAVIX75 MG PO
[2021-07-29 12:14] LABS: BASOPHILS % 0.3 % (0.0-1.0); HEMATOCRIT 34.4 % (38.2-49.6); HEMOGLOBIN 11.8 g/dL (14.0-18.0); LYMPHOCYTES # (AUTO) 1.1 (1.0-3.2); LYMPHOCYTES % 28.9 % (18.0-39.1); MEAN CORPUSCULAR HEMOGLOBIN 31.1 pg (28-32); MEAN CORPUSCULAR HGB CONC 34.3 g/dL (31-35); MEAN CORPUSCULAR VOLUME 90.8 fL (81-99); MONOCYTES # (AUTO) 0.3 (0.2-0.8); MONOCYTES % 7.7 % (4.4-11.3); NEUTROPHILS # (AUTO) 2.4 (2.1-6.9); NEUTROPHILS % 61.3 % (38.7-80.0); PLATELET COUNT 149 x10e3/uL (140-360); RED BLOOD COUNT 3.79 x10e6/uL (4.3-5.7); RED CELL DISTRIBUTION WIDTH 14.1 % (11.7-14.4)
[2021-07-29 12:23] LABS: INR 1.18
[2021-07-29 12:24] LABS: PARTIAL THROMBOPLASTIN TIME 38.9 seconds (23.8-35.5)
[2021-07-29 12:34] LABS: ALBUMIN 2.8 g/dL (3.5-5.0); ALBUMIN/GLOBULIN RATIO 0.5 (0.8-2.0); ANION GAP 12.3 mmol/L (8-16); CALCIUM 8.3 mg/dL (8.4-10.2); CREATININE, SERUM 0.78 mg/dL (0.72-1.25); MAGNESIUM 1.5 MG/DL (1.3-2.1); POTASSIUM 3.3 mmol/L (3.5-5.1)
[2021-07-29 12:42] LABS: CREATINE KINASE MB 0.2 ng/mL (0-5.0)
[2021-07-29] MEDS ORDERED: POTASSIUM CHLORIDE 20 MEQ TAB CR PO ONE (13:10)
[2021-07-29 13:15] VITALS: BP 124/62
== END 2021-07-29 13:16 | disposition home or self-care (01) ==
LOC: ER 10:45
DX: R50.9 Fever, unspecified (principal); J10.1 Influenza due to other identified influenza virus with other respiratory manifestations; R05.9 Cough, unspecified; I10 Essential (primary) hypertension; E78.5 Hyperlipidemia, unspecified; M32.9 Systemic lupus erythematosus, unspecified; F41.9 Anxiety disorder, unspecified; Z20.822 Contact with and (suspected) exposure to COVID-19; Z95.5 Presence of coronary angioplasty implant and graft
CPT/HCPCS: 36415; 71045; 80053; 82550; 82553; 83735; 83880; 84484; 85025; 85610; 85730; 87040; 93005; 99283; U0002

== ENCOUNTER → 2022-01-25 | Day surgery (SDC) | payer OTHER ==
[2022-01-22 08:36] LABS: BASOPHILS % 0.6 % (0.0-1.0); EOSINOPHILS % 0.9 % (0.0-6.0); HEMATOCRIT 37.1 % (38.2-49.6); HEMOGLOBIN 12.2 g/dL (14.0-18.0); LYMPHOCYTES # (AUTO) 1.9 (1.0-3.2); LYMPHOCYTES % 52.9 % (18.0-39.1); MEAN CORPUSCULAR HEMOGLOBIN 34.2 pg (28-32); MEAN CORPUSCULAR HGB CONC 32.9 g/dL (31-35); MEAN CORPUSCULAR VOLUME 103.9 fL (81-99); MONOCYTES # (AUTO) 0.1 (0.2-0.8); MONOCYTES % 3.7 % (4.4-11.3); NEUTROPHILS # (AUTO) 1.4 (2.1-6.9); NEUTROPHILS % 40.8 % (38.7-80.0); PLATELET COUNT 207 x10e3/uL (140-360); RED BLOOD COUNT 3.57 x10e6/uL (4.3-5.7); RED CELL DISTRIBUTION WIDTH 13.6 % (11.7-14.4)
[~2022-01-25] MED LIST changes: +FENTANYL CITRATE/PF 100MCG/2 ML INJ ONE; +LIDOCAINE HCL 2% LOCAL INJ 5 ML SDV VIAL INJ ONE; +MIDAZOLAM HCL 2 MG/2 ML VIAL ONE; +MULTI-VITAMIN1 EACH PO; +PROPOFOL IV EMULSION 10 MG/ML 20 ML VIAL ONE; +SIMETHICONE 40 MG/0.6 ML BTL ONE; +VIT D2 PO
[2022-01-25 08:00] VITALS: BP 148/84
== END | disposition home or self-care (01) ==
LOC: OR 07:11
PROVIDERS: ATTEND Internal Medicine Gastroenterology
DX: Z12.11 Encounter for screening for malignant neoplasm of colon (principal); D12.2 Benign neoplasm of ascending colon; D12.3 Benign neoplasm of transverse colon; K29.50 Unspecified chronic gastritis without bleeding; K63.89 Other specified diseases of intestine; K21.9 Gastro-esophageal reflux disease without esophagitis; K64.8 Other hemorrhoids; I25.10 Atherosclerotic heart disease of native coronary artery without angina pectoris; I10 Essential (primary) hypertension; R00.0 Tachycardia, unspecified; E78.5 Hyperlipidemia, unspecified; E66.3 Overweight; M32.9 Systemic lupus erythematosus, unspecified; M54.9 Dorsalgia, unspecified; Z01.810 Encounter for preprocedural cardiovascular examination; Z01.812 Encounter for preprocedural laboratory examination; Z79.02 Long term (current) use of antithrombotics/antiplatelets; Z79.899 Other long term (current) drug therapy; Z68.27 Body mass index [BMI] 27.0-27.9, adult
CPT/HCPCS: 36415; 43239; 45385; 85025; 88305; 88342; 93005; J2001; J2704; 45378; 88304; 88312; J2250; J3010

== ENCOUNTER 2023-12-03 15:05 | Outpatient (RCR) | payer MEDICARE ==
[~2023-12-03 15:05] MED LIST changes: -FENTANYL CITRATE/PF 100MCG/2 ML INJ ONE; -LIDOCAINE HCL 2% LOCAL INJ 5 ML SDV VIAL INJ ONE; -MIDAZOLAM HCL 2 MG/2 ML VIAL ONE; -PROPOFOL IV EMULSION 10 MG/ML 20 ML VIAL ONE; -SIMETHICONE 40 MG/0.6 ML BTL ONE
== END 2023-12-11 ==
LOC: RESP 15:05
PROVIDERS: ATTEND Internal Medicine Pulmonary Disease
DX: J84.10 Pulmonary fibrosis, unspecified (principal)
CPT/HCPCS: 94799

== ENCOUNTER 2024-01-06 16:00 | Outpatient (RCR) | payer MEDICARE | END 2024-01-11 | LOC: RESP 16:00 | DX: J84.10 Pulmonary fibrosis, unspecified (principal) | CPT/HCPCS: 94626 ×7; G0238 ×7 ==

== ENCOUNTER 2024-02-06 16:00 | Outpatient (RCR) | payer MEDICARE | END 2024-02-10 | LOC: RESP 16:00 | DX: J84.10 Pulmonary fibrosis, unspecified (principal) | CPT/HCPCS: 94626 ×5; G0238 ×5 ==

== ENCOUNTER 2024-03-05 16:00 | Outpatient (RCR) | payer MEDICARE | END 2024-03-12 | LOC: RESP 16:00 | DX: J84.10 Pulmonary fibrosis, unspecified (principal) | CPT/HCPCS: 94626 ×6; G0238 ×6 ==